=== PATIENT | female | born 1960 | race Caucasian/White ===

== ENCOUNTER 2021-07-08 10:55 | Emergency (ER) | payer OTHER ==
--- NOTE | 2021-07-08 11:00 | ERPHSYRPT ---
- History of Present Illness Time Seen by Provider: 07/08/21 11:00 Source: patient Exam Limitations: no limitations Physician History: This is a 61-year-old white female, non-smoker who presents with 1 week history of coughing, no fever, headache from coughing so much. The cough is nonproductive. No other individuals around her or that she is exposed to similar symptoms. She has no known exposure to individuals with COVID-19 infection. She has no chest pain. She has no abdominal pain. She has no nausea vomiting or diarrhea. She feels as though her sinuses are congested. She also has a sore throat. Timing/Duration: week(s) (1) Cough Quality/Degree: moderate, dry cough Possible Cause: no prior episodes Modifying Factors: Improves With: coughing Associated Symptoms: cough, headache, nasal congestion, sore throat, No fever, No shortness of breath Allergies/Adverse Reactions: No Known Drug Allergies Allergy (Verified 07/08/21 11:07) Home Medications: Atorvastatin Calcium 40 mg PO DAILY 07/08/21 [History] Ezetimibe 10 mg [Zetia 10 MG] 10 mg PO DAILY 07/08/21 [History] clonazePAM [Clonazepam] 1 mg PO DAILY 07/08/21 [History] Travel Risk - International Travel Have you traveled outside of the country in past 3 weeks: No - Coronavirus Screening Are you exhibiting any of the following symptoms?: Yes Symptoms: Cough: New Onset - Review of Systems Constitutional: No Symptoms Eyes: No Symptoms Ears, Nose, & Throat: Nose Congestion, Throat Pain Respiratory: Cough Cardiac: No Symptoms Abdominal/Gastrointestinal: No Symptoms Genitourinary Symptoms: No Symptoms Musculoskeletal: No Symptoms Skin: No Symptoms Neurological: No Symptoms Psychological: No Symptoms Endocrine: No Symptoms Hematologic/Lymphatic: No Symptoms Immunological/Allergic: No Symptoms All Other Systems: Reviewed and Negative - Past Medical History Neurological History: No Pertinent History Cardiac History: Hypertension Respiratory History: No Pertinent History Endocrine Medical History: No Pertinent History Musculoskeletal History: Arthritis - Nursing Vital Signs Nursing Vital Signs: Initial Vital Signs Temperature 99.9 F 07/08/21 10:59 Pulse Rate 74 07/08/21 10:59 Blood Pressure 178/104 07/08/21 10:59 O2 Sat by Pulse Oximetry 96 07/08/21 10:59 Pain Scale Pain Intensity 0 - Physical Exam General Appearance: no apparent distress, alert Eye Exam: PERRL/EOMI, eyes nml inspection Ears, Nose, Throat Exam: normal ENT inspection, moist mucous membranes, pharyngeal erythema Neck Exam: normal inspection, non-tender, supple, full range of motion Respiratory Exam: normal breath sounds, lungs clear, airway intact, No chest tenderness, No respiratory distress Cardiovascular Exam: regular rate/rhythm, normal heart sounds, normal peripheral pulses Gastrointestinal/Abdomen Exam: soft, normal bowel sounds, No tenderness Pelvic Exam: not done Rectal Exam: not done Back Exam: normal inspection, normal range of motion, No CVA tenderness, No vertebral tenderness Extremity Exam: normal inspection, normal range of motion, pelvis stable Neurologic Exam: alert, oriented x 3, cooperative, assistant manager II-XII nml as tested, normal mood/affect, nml cerebellar function, nml station & gait, sensation nml Skin Exam: normal color, warm, dry Lymphatic Exam: No adenopathy SpO2 Interpretation: normal O2 Delivery: Room Air - Course Nursing assessment & vital signs reviewed: Yes - Progress Progress: unchanged Air Movement: good Blood Culture(s) Obtained: No Antibiotics given: Yes Counseled pt/family regarding: diagnosis, need for follow-up - Departure Departure Disposition: Home Clinical Impression: Upper respiratory infection Condition: Stable Critical Care Time: No Referrals: SHERRON CHÁVEZ [Primary Care Provider] - Follow up/PCP as directed Additional Instructions: Drink plenty of fluids. Take your medication as prescribed. Return to the emergency department if symptoms are worse. Follow-up with your primary care physician for persistent symptoms. Quarantine yourself until the results of your COVID-19 test returned. Follow-up with [facility]/incident command on 07/11/2021 for the result o f your COVID-19 test. Prescriptions: Hydrocodone/Acetaminophen [Hydrocodone-Acetamn 7.5-325/15] 10 ml PO Q8H PRN PRN #120 ml MDD 30 ml PRN Reason: Cough Prednisone 10 mg [Deltasone 10 mg] 10 mg PO TID #12 tablet Azithromycin 250 mg [Zithromax 250 MG TABLET] 250 mg PO ZPACK #6 tablet
[2021-07-08 11:07] VITALS: BP 178/104; PULSE 74; O2SAT 97
[2021-07-08] MEDS ORDERED: solu-MEDROL 125 MG, Sterile H2O 10 ml 2 ML IM ONE ×2 (11:21)
[2021-07-08] MEDS ORDERED: Rocephin 1000 MG INJ IM ONE (11:21)
[2021-07-08] MEDS ORDERED: XYLOCAINE 1% HCL 20 ML MDV ONE (11:30)
[2021-07-08] MEDS ORDERED: Rocephin 1000 MG INJ ONE (11:30)
[2021-07-08] MEDS ORDERED: solu-MEDROL ONE (11:30)
== END 2021-07-08 12:02 | disposition home or self-care (01) ==
LOC: ED 10:55
DX: J06.9 Acute upper respiratory infection, unspecified (principal); R50.9 Fever, unspecified; R09.81 Nasal congestion; J02.9 Acute pharyngitis, unspecified; I10 Essential (primary) hypertension; Z79.891 Long term (current) use of opiate analgesic
CPT/HCPCS: 96372; 99284; U0003; J0696; J2930